=== PATIENT | female | born 1940 | race Caucasian/White ===

== ENCOUNTER 2017-10-05 23:38 | Observation (INO) ==
[2017-10-05] MEDS ORDERED: HYDROmorphone PF Inj 2 MG/ML Vial IV.PUSH ONE (23:53)
--- NOTE | 2017-10-06 00:16 | ED ---
HPI General Chief complaint: Back Pain/Injury Stated complaint: Back pain Time Seen by Provider: 10/05/17 23:51 Source: patient Mode of arrival: EMS Limitations: no limitations History of Present Illness HPI narrative: The patient is a 77 year old female who presents to the [facility] emergency department with a history of low back pain that awoke her from sound sleep earlier this morning. The patient reports that the low back pain is in the right side of her mid back. The patient reports that it feels like a spasm that comes and goes. She reports that it is gradually been getting worse with time throughout the day. She reports that she took a Percocet left over from having similar pain on the left side a month ago evaluated in this emergency department. She reports that her daughter also gave her a Flexeril. She reports that the pain was not improving, therefore she called ambulance services. The patient was noted to be hypertensive prior to arrival. She reports that she has a history of difficult to control high blood pressure at her primary care physician is monitoring closely and thought to be related to recent stress. She has not had any recent changes in her blood pressure medication regimen. She denies having any chest pain or chest pressure. She denies having any worsening shortness of breath that she does report having a history of asthma. She does however report that over the last 2 days she has had intermittent ingestion. She reports that she has been taking Pepcid without relief. The patient additionally reports that this evening she began to have a bitemporal headache. She reports that she also had sinus congestion earlier in the day. She denies having any productive cough. On review of systems otherwise, she denies having any recent fevers, neck pain, abdominal pain, vomiting, diarrhea, urinary symptoms, loss of bowel control, new urinary incontinence, (long-standing prior history of bladder incontinence), radiation of pain down into her arms or legs, weakness of her arms or legs, numbness or tingling of her arms or legs, facial droop, difficulty with word finding ability , vertigo, or vision changes. Related Data Home Medications Medication Instructions Recorded Confirmed albuterol sulfate [Ventolin HFA] 2 puff INHALATION Q4H PRN 09/19/17 10/06/17 atorvastatin 20 mg PO DAILY 09/19/17 10/06/17 clonazepam 1 mg PO DAILY 09/19/17 10/06/17 famotidine 20 mg PO PRN PRN 09/19/17 10/06/17 fluticasone-salmeterol [Advair 1 inh INHALATION BID 09/19/17 10/06/17 Diskus] fluticasone-vilanterol [Breo 1 inh INHALATION DAILY 09/19/17 10/06/17 Ellipta] hydralazine 25 mg PO TID 09/19/17 10/06/17 metoprolol tartrate 50 mg PO BID 09/19/17 10/06/17 montelukast 10 mg PO QPM 09/19/17 10/06/17 olopatadine 1 drp OPHTHALMIC (EYE) BID 09/19/17 10/06/17 sertraline 50 mg PO DAILY 09/19/17 10/06/17 Allergies Allergy/AdvReac Type Severity Reaction Status Date / Time aspirin Allergy Edema, Verified 10/05/17 23:50 Generalized Penicillins Allergy Edema, Verified 09/19/17 19:12 Generalized Sulfa (Sulfonamide Allergy Edema, Verified 09/19/17 19:12 Antibiotics) Generalized Review of Systems ROS: all other systems reviewed are negative (Except for that which was mentioned in the HPI.) [facility] Medical History Medical History Anxiety (Acute) Asthma (Acute) Depression (Acute) HTN (hypertension) (Acute) Hx of hysterectomy (Acute) Kidney disease (Acute) Surgical History Surgical History History of appendectomy (Acute) History of orthopedic surgery (Acute) Hx of cholecystectomy (Acute) Social History Social History Substance History: No History of Abuse Second Hand Smoke Exposure: No Smoking Status: Current some day smoker Tobacco Type: Cigarettes Cigarettes Per Day: 5 How Often Do You Have a Drink Containing Alcohol: Monthly or less Recent Travel in [facility] within the Last 8 Weeks: No Recent Out of Country Travel within the Last 8 Weeks: No Immunization History Tetanus Immunization: <5 Years Exam Const General: cooperative, no acute distress and well developed Nutritional Appearance: well nourished Orientation: alert, awake and oriented x3 HENMT Head: normocephalic and atraumatic Nose: no nasal discharge and no epistaxis Mouth: moist mucous membranes Throat: posterior oropharynx normal and uvula midline Eyes Sclera: normal sclerae Pupils: PERRL Neck Neck: no meningeal signs, trachea midline and no JVD Resp Effort & Inspection: no use of accessory muscles Auscultation: clear to auscultation bilaterally Cardio Rate: regular rate Rhythm: regular rhythm Heart Sounds: no gallops, murmur (1/6 systolic murmur, no gallops or rubs.) and no rubs GI Inspection: non-distended Palpation: soft, no hepatosplenomegaly and nontender Auscultation: normal bowel sounds Back/Spine/Pelvis Back: no CVA tenderness Cervical Spine: No cervical spinal tenderness Thoracic/Lumbar Spine: No thoracic spinal tenderness, No lumbar spinal tenderness and other (The patient reports that the location of the pain is along the mid thoracic paraspinal musculature on the right, however this is not able to be reproduced. No spinous process tenderness to palpation. No step- off or crepitus. No erythema or ecchymosis. No other rashes noted.) Skin General: dry skin (warm) Neuro General: alert, awake and oriented x3 Cranial Nerves: CN's II-XI intact bilaterally Speech: speech normal Motor: strength 5/5 throughout, no movement abnormalities noted and other (The patient has a negative straight leg raise bilaterally.) Sensory Exam: no sensory deficits noted Extrem General: normal to inspection, no clubbing, no cyanosis and no edema Psych Mood: congruent mood Affect: normal affect Judgment: judgment good Course Consultations Consultation #1: The patient's case including history, pertinent physical examination findings, and laboratory studies were discussed with Dr. Howard. As the patient's blood pressure is now down to 150/64, he recommends that the patient be admitted to the chest pain center instead of to the hospitalist service. Initial Documented Vital Signs Temperature 98.7 F 10/05/17 23:47 Pulse Rate 71 10/05/17 23:47 Respiratory Rate 19 10/05/17 23:47 Blood Pressure 233/109 H 10/05/17 23:47 Pulse Oximetry 97 10/05/17 23:47 Last Documented Vital Signs Temperature 98.4 F 10/06/17 05:23 Pulse Rate 63 10/06/17 05:23 Respiratory Rate 18 10/06/17 05:23 Blood Pressure 145/67 H 10/06/17 05:23 Pulse Oximetry 89 L 10/06/17 05:23 Medical Decision Making [facility] Narrative Medical decision making narrative: During the course of the patient's emergency department visit, the patient's history, examination, and differential diagnosis were reviewed with the patient. The patient was placed on a cardiac surgeon with oximetry and frequent blood pressure monitoring. The patient had IV access obtained and blood work sent for analysis. A diagnostic evaluation was started regarding the patient's back pain associated with hypertension, indigestion. A CTA to rule out aortic dissection was ordered. The patient was initially provided hydromorphone for pain, Zofran for nausea. The patient continued to have pain and was given a second dose of hydromorphone. The patient had an inch of Nitropaste applied to the chest wall. The patient was not provided aspirin as she has an allergy to this. The patient's diagnostic evaluation is remarkable for a white count of 7.5, platelets of 196, neutrophil percent 77.4, hemoglobin 13.6, PT PTT within normal limits, chemistry remarkable for a troponin I of less than 0.02, glucose 110, potassium 3.4, magnesium within normal limits, lipase within normal limits , GFR 65. CPK within normal limits, imaging reveals a chest x-ray that shows a mild left base atelectasis, tortuous and atherosclerotic thoracic aorta, thoracic aorta CT is remarkable for a tortuous and atherosclerotic aorta, slight aneurysmal dilatation of the distal abdominal aorta and the left common iliac artery. No dissection or other acute abnormality of the aorta. The patient is noted to have coronary artery calcifications. The patient's electronic medical record was reviewed and the patient had responded when she was seen for back pain a month ago to Dilaudid. The patient was also noted to be very hypertensive on that occasion which resolved with treatment of her pain. Initially, it did not appear that the patient's blood pressure was improving with pain control. Therefore labetalol was written to be administered, however on repeat analysis by the nurse at the bedside prior to labetalol being given the patient's blood pressure had dropped down to 150/ 64. Given the patient's reported dyspepsia which could be atypical cardiac findings , high blood pressure, and EKG abnormalities the patient will be admitted to the chest pain center for a rule out serial cardiac enzyme protocol followed by consideration of stress testing. The patient's results were discussed with the patient, including the plan of care. I explained that further testing and/ or monitoring is indicated based on the patient's history, examination, and/ or laboratory findings. Therefore, I recommended admission for additional evaluation. The patient expressed understanding and was agreeable with this plan. The patient was admitted to the hospital in stable condition and sent to a bed under the care of the [facility]. Medical Screen Exam Complete: Yes Emergency Medical Condition: Yes Differential Diagnosis Differential Diagnosis: Acute coronary syndrome, versus aortic dissection, versus pulmonary embolism, versus pneumothorax, versus pancreatitis Medical Records Medical records reviewed: Yes I reviewed the patient's medical records. Lab Data Lab results reviewed: Yes I reviewed the patient's lab results. Result diagrams: 10/05/17 23:59 10/05/17 23:59 Lab Results 10/05/17 10/05/17 10/05/17 Range/Units 23:59 23:59 23:59 WBC 7.5 (4.0-11.0) th/mm3 RBC 4.63 (4.00-5.30) mil/mm3 Hgb 13.6 (11.6-15.3) gm/dL Hct 40.9 (35.0-46.0) % MCV 88.2 (80.0-100.0) fL MCH 29.4 (27.0-34.0) pg MCHC 33.4 (32.0-36.0) % RDW 14.9 (11.6-17.2) % Plt Count 196 (150-450) th/mm3 MPV 9.0 (7.0-11.0) fL Neut % (Auto) 77.4 H (16.0-70.0) % Lymph % (Auto) 14.8 (9.0-44.0) % Grayson % (Auto) 6.5 (0.0-8.0) % Eos % (Auto) 0.8 (0.0-4.0) % Baso % (Auto) 0.5 (0.0-2.0) % Neut # (Auto) 5.8 (1.8-7.7) th/mm3 Lymph # (Auto) 1.1 (1.0-4.8) th/mm3 Grayson # (Auto) 0.5 (0.0-0.9) th/mm3 Eos # (Auto) 0.1 (0.0-0.4) th/mm3 Baso # (Auto) 0.0 (0.0-0.2) th/mm3 WBC Differential . Differential Comment Auto diff final PT 10.3 (9.8-11.6) sec INR 1.0 Ratio APTT 24.7 (24.3-30.1) sec Sodium 139 (136-145) meq/L Potassium 3.4 L (3.5-5.1) meq/L Chloride 101 (98-107) meq/L Carbon Dioxide 28.8 (21.0-32.0) meq/L Anion Gap 9 (5-15) meq/L BUN 12 (7-18) mg/dL Creatinine 0.85 (0.50-1.00) mg/dL Estimated GFR 65 L (>89) mL/min Random Glucose 110 H (74-106) mg/dL Calcium 8.6 (8.5-10.1) mg/dL Magnesium 1.9 (1.5-2.5) mg/dL Total Bilirubin 0.9 (0.2-1.0) mg/dL AST 17 (15-37) U/L ALT 24 (10-53) U/L Alkaline Phosphatase 106 (45-117) U/L Total Creatine Kinase 83 (26-192) U/L Troponin I Less than 0.02 L (0.02-0.05) ng/mL Total Protein 6.6 (6.4-8.2) g/dL Albumin 3.5 (3.4-5.0) g/dL Lipase 47 L (73-393) U/L Imaging Data Radiologist's impression: Thoracic Aorta CT 10/06/17 00:00 CONCLUSION: 1. Tortuous and atherosclerotic aorta. Slight aneurysmal dilatation of the distal abdominal aorta and the left common iliac artery. No dissection or other acute abnormality of the aorta. 2. Emphysema and trace atelectasis of both lungs. 3. Distended main pulmonary artery with differential including pulmonic stenosis with jet effect and chronic pulmonary hypertension. There is no evidence of pulmonary embolus. 4. Coronary artery calcification. 5. Normal heart size. 6. Cysts of the kidneys. Also a subcentimeter angiomyolipoma of the right kidney. 7. Diverticulosis of the sigmoid colon. No diverticulitis or other acute inflammatory changes. 8. Degenerative changes of the spine and bilateral hips. 9. Very small hiatal hernia. Chest X-Ray 10/06/17 00:02 CONCLUSION: Mild left base atelectasis. Tortuous and atherosclerotic thoracic aorta. ECG Data Attestation: I personally reviewed and interpreted this ECG as follows: Interpretation: The patient had an EKG done on arrival. The patient's EKG reveals sinus rhythm with a sinus arrhythmia heart rate of 71, QRS duration is 134 ms, QTC [address]-T wave abnormalities are noted, downsloping ST segments in leads III, V2, T-wave inversions in leads III, V1, V2. No acute ST segment elevation. Discharge Plan Discharge Disposition Patient Disposition: 30 Still Patient Discharge Details Diagnosis: Chest pain, Acute right-sided thoracic back pain Physicians Team ED Provider: Kirsty Li Attending Provider: Thalia Sanchez Discharge Interventions Interventions: ED Discharge Assessment Last Done: 10/06/17 05:02 Status ED Status: Left Department Discharge Information Discharge Date/Time: 10/06/17 05:04
--- NOTE | 2017-10-06 00:30 | XR ---
EXAM DATE: 10/06/2017 12:19 AM EDT AGE/SEX: 77 years / Female INDICATIONS: Chest pain. CLINICAL DATA: This is the patient's initial encounter. Patient reports that signs and symptoms have been present for 2 days and indicates a pain score of 3/10. MEDICAL/SURGICAL HISTORY: Asthma. Hypertension. None. COMPARISON: No prior exams available for comparison. FINDINGS: There is mild atelectasis of the left base. No pleural effusion or pneumothorax. Heart size within normal limits. Thoracic aorta is tortuous and atherosclerotic. No evidence of aneur ysm. CONCLUSION: Mild left base atelectasis. Tortuous and atherosclerotic thoracic aorta. Electronically signed by: Josue Cao MD 10/06/2017 12:28 AM EDT
[2017-10-06 00:33] LABS: Baso % (Auto) 0.5 % (0.0-2.0); Eos # (Auto) 0.1 th/mm3 (0.0-0.4); Eos % (Auto) 0.8 % (0.0-4.0); Hematocrit 40.9 % (35.0-46.0); Hemoglobin 13.6 gm/dL (11.6-15.3); Lymph # (Auto) 1.1 th/mm3 (1.0-4.8); Lymph % (Auto) 14.8 % (9.0-44.0); Mean Corpuscular HGB Conc 33.4 % (32.0-36.0); Mean Corpuscular Hemoglobin 29.4 pg (27.0-34.0); Mean Corpuscular Volume 88.2 fL (80.0-100.0); Mono # (Auto) 0.5 th/mm3 (0.0-0.9); Mono % (Auto) 6.5 % (0.0-8.0); Neut # (Auto) 5.8 th/mm3 (1.8-7.7); Neut % (Auto) 77.4 % (16.0-70.0); Platelet Count 196 th/mm3 (150-450); Red Blood Count 4.63 mil/mm3 (4.00-5.30); Red Cell Distribution Width 14.9 % (11.6-17.2); White Blood Count 7.5 th/mm3 (4.0-11.0)
[2017-10-06 00:44] LABS: Activated Partial Thrombo Time 24.7 sec (24.3-30.1); Prothrombin Time 10.3 sec (9.8-11.6)
[2017-10-06 00:56] LABS: Albumin 3.5 g/dL (3.4-5.0); Anion Gap 9 meq/L (5-15); Aspartate Aminotransferase 17 U/L (15-37); Blood Urea Nitrogen 12 mg/dL (7-18); Calcium 8.6 mg/dL (8.5-10.1); Carbon Dioxide 28.8 meq/L (21.0-32.0); Chloride 101 meq/L (98-107); Glomerular Filtration Rate 65 mL/min (>89); Glucose,Random 110 mg/dL (74-106); Lipase 47 U/L (73-393); Magnesium 1.9 mg/dL (1.5-2.5); Potassium 3.4 meq/L (3.5-5.1); Sodium 139 meq/L (136-145)
[2017-10-06 01:01] LABS: Alanine Aminotransferase 24 U/L (10-53); Alkaline Phosphatase 106 U/L (45-117); Total Protein 6.6 g/dL (6.4-8.2)
[2017-10-06 01:27] LABS: Creatine Kinase 83 U/L (26-192)
[2017-10-06] MEDS ORDERED: HYDROmorphone PF Inj 2 MG/ML Vial IV.PUSH ONE (01:28)
[2017-10-06] MEDS ORDERED: Labetalol HCl Inj 100 MG/20 ML Vial IV.PUSH ONE (02:12)
--- NOTE | 2017-10-06 02:24 | CT ---
EXAM DATE: 10/06/2017 2:06 AM EDT AGE/SEX: 77 years / Female INDICATIONS: Patient complaining of back pain. CLINICAL DATA: This is the patient's initial encounter. Patient reports that signs and symptoms have been present for 1 day and indicates a pain score of 8/10. MEDICAL/SURGICAL HISTORY: Hypertension. Asthma. Hysterectomy. Appendectomy. Cholecystectomy. RADIATION DOSE: 6.53 CTDI (mGy) COMPARISON: No prior exams available for comparison. TECHNIQUE: Volumetric scanning was performed using a multi-row detector CT scanner during bolus infu bernarda of 100 ml Omnipaque 350 (iohexol) nonionic water-soluble contrast as a single exam dose. The d latha was post processed with a variety of visualization algorithms including full volume maximum inten sity projection, multi-planar sliding thin slab reformation, curved planar reformation, and surface r endering techniques. Using automated exposure control and adjustment of the mA and/or kV according t o patient size, radiation dose was kept as low as reasonably achievable to obtain optimal diagnostic quality images. DICOM format image data is available electronically for review and comparison. FINDINGS: The aorta is tortuous and atherosclerotic. The vessel is mildly aneurysmal in the distal abdominal re gion, measures approximately 2.4 x 3.0 cm just proximal to the bifurcation. The left common iliac art julia is also mildly aneurysmal at 1.4 cm. No periaortic inflammatory changes are present. There is no dissection. The study is of good utility and excluding pulmonary embolus. There is distention of the main pulmona ry artery, measures approximately 4.6 cm across, typically seen in the setting of pulmonic stenosis w ith jet phenomena or chronic pulmonary hypertension. Heart size within normal limits. Scattered coron manny artery calcification noted, most conspicuous of the left circumflex and left anterior descending. Mild emphysema present. Trace dependent and basilar atelectasis seen bilaterally. No pneumonic infilt rate. No pleural effusion or pneumothorax. Liver, spleen, pancreas and adrenal glands within normal limits for technique. Scattered cysts are se en of both kidneys measuring up to 2.3 cm in size. An approximately 8 mm angiomyolipoma seen of the r ight lower pole. There is no hydronephrosis of either kidney. Florid diverticulosis seen of the sigmoid colon. No acute diverticulitis demonstrated. Very small hiatal hernia present. No acute bony abnormality demonstrated. Bilateral hip osteoarthritis present, severe on the right and moderate on the left. There are degenerative changes of the spine. CONCLUSION: 1. Tortuous and atherosclerotic aorta. Slight aneurysmal dilatation of the distal abdominal aorta an d the left common iliac artery. No dissection or other acute abnormality of the aorta. 2. Emphysema and trace atelectasis of both lungs. 3. Distended main pulmonary artery with differential including pulmonic stenosis with jet effect and chronic pulmonary hypertension. There is no evidence of pulmonary embolus. 4. Coronary artery calcification. 5. Normal heart size. 6. Cysts of the kidneys. Also a subcentimeter angiomyolipoma of the right kidney. 7. Diverticulosis of the sigmoid colon. No diverticulitis or other acute inflammatory changes. 8. Degenerative changes of the spine and bilateral hips. 9. Very small hiatal hernia. Electronically signed by: Josue Cao MD 10/06/2017 2:23 AM EDT
[2017-10-06] MEDS ORDERED: Orphenadrine Inj 60 MG/2 ML Ampul IM ONE (02:36)
[2017-10-06] MEDS ORDERED: Morphine Inj 4 MG/ML Vial IV.PUSH PRN (04:42)
[2017-10-06 07:37] LABS: Creatine Kinase 76 U/L (26-192)
--- NOTE | 2017-10-06 07:53 | P.HPCA ---
History of Present Illness Primary Care Physician: Neel Young Chief Complaint: Back pain History of Present Illness: 77 year old female with history of hypertension, hyperlipidemia, asthma, and current smoker since the ER for further evaluation right mid back pain. Onset yesterday. Characterizes "spasms." Duration 5-10 seconds. No associated symptoms of nausea, vomiting, dyspnea, or diaphoresis. Associated symptoms included belching and indigestion. No precipitating factors. No recent illness , cough, fever, or injury. Relieving factors pain medication given in ER. Endorses similar pain 2 weeks ago, although on the left mid back with radiation to left anterior chest. Seen at [place] [facility] given pain medication and discharged home. No known coronary artery disease or diabetes. No recent cardiac testing. Continues to smoke. - Diagnosis (1) Acute right-sided thoracic back pain (2) History of hypertension (3) History of hyperlipidemia (4) History of asthma (5) Tobacco abuse Review of Systems All other systems reviewed negative except as stated in HPI PMFSH - History History Provided By: Patient - Medical History Medical History: Medical History (Last Reviewed 10/06/17 @ 09:33 by DIMAS Aj) Anxiety Asthma Depression HTN (hypertension) Hx of hysterectomy Kidney disease - Surgical History Surgical History: Surgical History (Last Reviewed 10/06/17 @ 09:33 by DIMAS Aj) History of appendectomy History of orthopedic surgery Hx of cholecystectomy - Tobacco History Second Hand Smoke Exposure: No Tobacco Use In Past 30 Days: Yes Smoking Status: Current some day smoker Tobacco Type: Cigarettes Cigarettes Per Day: 5 - Alcohol History How Often Do You Have a Drink Containing Alcohol: Monthly or less - Substance Use History Substance History: No History of Abuse - Travel History Recent Travel in the [place] Within the Last 8 Weeks: No Recent Travel Out of the Country Within the Last 8 Weeks: No - Immunization History Tetanus Immunization: <5 Years Medications and Allergies Active Medications: Active Medications Hydrocodone Bitart/Acetaminophen ([place] 7.5/325) 1 tab PO Q4H PRN PRN Reason: PAIN SCALE 1 TO 7 Morphine Sulfate (Morphine Inj) 2 mg IV.PUSH Q4H PRN PRN Reason: PAIN SCALE 8 TO 10 Ondansetron HCl (Zofran Inj) 4 mg IV.PUSH Q6H PRN PRN Reason: NAUSEA Sodium Chloride (Ns Flush) 2 ml IV.FLUSH UNSCH PRN PRN Reason: FLUSH AFTER USING IV ACCESS Sodium Chloride (Ns Flush) 2 ml IV.FLUSH BID LEV Sodium Chloride (Ns Flush) 2 ml IV.FLUSH PRN PRN PRN Reason: FLUSH AFTER USING IV ACCESS Allergies Allergy/AdvReac Type Severity Reaction Status Date / Time aspirin Allergy Edema, Verified 10/05/17 23:50 Generalized Penicillins Allergy Edema, Verified 09/19/17 19:12 Generalized Sulfa (Sulfonamide Allergy Edema, Verified 09/19/17 19:12 Antibiotics) Generalized Home Medications Medication Instructions Recorded Confirmed Type albuterol sulfate [Ventolin HFA] 2 puff INHALATION Q4H PRN 09/19/17 10/06/17 History atorvastatin 20 mg PO DAILY 09/19/17 10/06/17 History clonazepam 1 mg PO DAILY 09/19/17 10/06/17 History famotidine 20 mg PO PRN PRN 09/19/17 10/06/17 History fluticasone-salmeterol [Advair 1 inh INHALATION BID 09/19/17 10/06/17 History Diskus] fluticasone-vilanterol [Breo 1 inh INHALATION DAILY 09/19/17 10/06/17 History Ellipta] hydralazine 25 mg PO TID 09/19/17 10/06/17 History metoprolol tartrate 50 mg PO BID 09/19/17 10/06/17 History montelukast 10 mg PO QPM 09/19/17 10/06/17 History olopatadine 1 drp OPHTHALMIC (EYE) BID 09/19/17 10/06/17 History sertraline 50 mg PO DAILY 09/19/17 10/06/17 History Exam Vital signs: Vital Signs 10/05/17 23:47 10/06/17 00:00 10/06/17 01:36 Temperature 98.7 F Pulse Rate 71 Respiratory Rate 19 18 Blood Pressure 233/109 H Pulse Oximetry 97 97 10/06/17 01:40 10/06/17 02:55 10/06/17 02:57 Temperature 98.4 F Pulse Rate 87 65 Respiratory Rate 18 15 18 Blood Pressure 213/94 H 150/64 H Pulse Oximetry 97 97 10/06/17 05:23 10/06/17 07:20 10/06/17 07:47 Temperature 98.4 F 98.0 F Pulse Rate 63 64 63 Respiratory Rate 18 18 Blood Pressure 145/67 H 139/64 Pulse Oximetry 89 L 96 Intake & Output 10/05/17 10/06/17 10/06/17 18:59 06:59 18:59 Weight 72.9 kg Narrative: GENERAL: Alert WN, WD, NAD, pleasant, elderly female HEAD: NC, AT CV: RRR, without murmur, rub, gallop, no JVD, S1-S2 no S3-S4. Chest wall nontender to palpation RESP: Diminished lungs throughout bilateral, no crackles, wheeze, rhonchi, symmetrical chest rise, nonlabored, able to speak in full sentences ABD: Soft, NT, ND, no masses, positive bowel tones EXT: Pulses +2x4, no dependent edema MS: Normal tone x4 extremities, nontender, no obvious deformities, full range of motion NEURO: CN II through CN XII grossly intact, motor strength 5/5 PSYCH: A+O x3, pleasant affect, appropriate speech, mood, insight and judgment SKIN: Normal turgor, normal texture, solar damage, no lesions, no rashes Results 10/05/17 23:59 10/05/17 23:59 Cardiac Enzymes 10/05/17 10/06/17 Range/Units 23:59 04:50 AST 17 (15-37) U/L Troponin I Less than 0.02 L Less than 0.02 L (0.02-0.05) ng/mL Coagulation 10/05/17 Range/Units 23:59 PT 10.3 (9.8-11.6) sec APTT 24.7 (24.3-30.1) sec CBC 10/05/17 Range/Units 23:59 WBC 7.5 (4.0-11.0) th/mm3 RBC 4.63 (4.00-5.30) mil/mm3 Hgb 13.6 (11.6-15.3) gm/dL Hct 40.9 (35.0-46.0) % Plt Count 196 (150-450) th/mm3 Neut # (Auto) 5.8 (1.8-7.7) th/mm3 Lymph # (Auto) 1.1 (1.0-4.8) th/mm3 [place] # (Auto) 0.5 (0.0-0.9) th/mm3 Eos # (Auto) 0.1 (0.0-0.4) th/mm3 Baso # (Auto) 0.0 (0.0-0.2) th/mm3 Comprehensive Metabolic Panel 10/05/17 Range/Units 23:59 Sodium 139 (136-145) meq/L Potassium 3.4 L (3.5-5.1) meq/L Chloride 101 (98-107) meq/L Carbon Dioxide 28.8 (21.0-32.0) meq/L BUN 12 (7-18) mg/dL Creatinine 0.85 (0.50-1.00) mg/dL Calcium 8.6 (8.5-10.1) mg/dL AST 17 (15-37) U/L ALT 24 (10-53) U/L Alkaline Phosphatase 106 (45-117) U/L Total Protein 6.6 (6.4-8.2) g/dL Albumin 3.5 (3.4-5.0) g/dL Intake and Output 10/05/17 10/06/17 10/06/17 22:59 06:59 14:59 Other: Weight 72.9 kg EKG interpretations - EKG EKG results cardiology: sinus rhythm (NSR, LAD, R BBB) Caprini VTE Risk Assessment Caprini VTE Risk Assessment: Moderate/High Risk (score >= 2) Caprini Risk Assessment Model: Point Value = 1 Point Value = 2 Point Value = 3 Point Value = 5 Age 41-60 Minor surgery BMI > 25 kg/m2 Swollen legs Varicose veins or History of unexplained or recurrent spontaneous Oral contraceptives or hormone replacement Sepsis (< 1 month) Serious lung disease, including pneumonia (< 1 month) Abnormal pulmonary function Acute myocardial infarction Congestive heart failure (< 1 month) History of inflammatory bowel disease Medical patient at bed rest Age 61-74 Arthroscopic surgery Major open surgery (> 45 min) Laparoscopic surgery (> 45 min) Malignancy Confined to bed (> 72 hours) Immobilizing plaster cast Central venous access Age >= 75 History of VTE Family history of VTE Factor V Leiden Prothrombin [id number] Lupus anticoagulant Anticardiolipin antibodies Elevated serum homocysteine Heparin-induced thrombocytopenia Other congenital or acquired thrombophilia Stroke (< 1 month) Elective arthroplasty Hip, pelvis, or leg fracture Acute spinal cord injury (< 1 month) Prophylaxis Regimen: Total Risk Factor Score Risk Level Prophylaxis Regimen 0-1 Low Early ambulation 2 Moderate Order ONE of the following: *Sequential Compression Device (SCD) *Heparin 5000 units SQ BID 3-4 Higher Order ONE of the following medications: *Heparin 5000 units SQ TID *Enoxaparin/Lovenox 40 mg SQ daily (WT < 150 kg, CrCl > 30 mL/min) *Enoxaparin/Lovenox 30 mg SQ daily (WT < 150 kg, CrCl > 10-29 mL/min) *Enoxaparin/Lovenox 30 mg SQ BID (WT < 150 kg, CrCl > 30 mL/min) AND/OR *Sequential Compression Device (SCD) 5 or more Highest Order ONE of the following medications: *Heparin 5000 units SQ TID (Preferred with Epidurals) *Enoxaparin/Lovenox 40 mg SQ daily (WT < 150 kg, CrCl > 30 mL/min) *Enoxaparin/Lovenox 30 mg SQ daily (WT < 150 kg, CrCl > 10-29 mL/min) *Enoxaparin/Lovenox 30 mg SQ BID (WT < 150 kg, CrCl > 30 mL/min) AND *Sequential Compression Device (SCD) Assessment and Plan - Assessment (1) Acute right-sided thoracic back pain Code(s): M54.6 - Pain in thoracic spine Status: Resolved Plan: Discomfort resolved. Admitted chest pain center. ACS ruled out with 2 sets of EKGs and cardiac enzymes. Seen and evaluated by Dr. Ramiro Sher. Proceed with Lexiscan due to multiple risk factors. Patient agreeable to plan of care and verbalizes understanding. (2) History of hypertension Code(s): Z86.79 - Personal history of other diseases of the circulatory system Status: Chronic Plan: Continue hydralazine and metoprolol. (3) History of hyperlipidemia Code(s): Z86.39 - Personal history of other endocrine, nutritional and metabolic disease Status: Chronic Plan: Continue atorvastatin. (4) History of asthma Code(s): Z87.09 - Personal history of other diseases of the respiratory system Status: Chronic Plan: Continue Advair, Breo, and albuterol. (5) Tobacco abuse Code(s): Z72.0 - Tobacco use Status: Chronic Plan: Strongly encouraged and stressed the importance of tobacco cessation. Instructed to quit smoking. H&P: Quality - VTE Deep Vein Thrombosis/Pulmonary Embolism Present on Admission: No
[2017-10-06 09:39] LABS: Creatine Kinase 74 U/L (26-192)
[2017-10-06] MEDS ORDERED: Regadenoson Inj 0.4 MG/5 ML Syringe IV.PUSH ONE (11:25)
[2017-10-06] MEDS ORDERED: Budesonide-Formoterol 160/4.5 MCG 6 GM Inhaler INH SCH (12:00)
[2017-10-06] MEDS ORDERED: Sertraline 50 MG Tablet PO SCH (12:00)
[2017-10-06] MEDS ORDERED: Metoprolol Tartrate 50 MG Tablet PO SCH (12:00)
[2017-10-06] MEDS ORDERED: hydrALAZINE 25 MG Tablet PO SCH (13:00)
[2017-10-06 13:24] VITALS: PULSE 70; RESP 16; O2SAT 91
--- NOTE | 2017-10-06 13:30 | NM ---
EXAM DATE: 10/06/2017 1:04 PM EDT AGE/SEX: 77 years / Female INDICATIONS:Angina. . Hypertensive. Lower back pain. CLINICAL DATA: This is the patient's initial encounter. Patient reports that signs and symptoms have been present for 1 day and indicates a pain score of 0/10. MEDICAL/SURGICAL HISTORY: Hypertension. Asthma. Hysterectomy. Appendectomy. Cholecystectomy. COMPARISON: No prior exams available for comparison. DOSE: 8.4 mCi Tc 99m Myoview at rest 27.2 mCi [id number]-Infaocr at stress 0.4 mg Lexiscan STRESS SYMPTOMS: Throat tightness and abdomen pain. EJECTION FRACTION: 60 % TECHNIQUE: The patient underwent pharmacologic stress with infusion of prescribed dose. Continuous ECG tracing was monitored during stress. Gated SPECT imaging was performed after stress and conventi onal SPECT imaging was performed at rest. The examination was performed on a SPECT/CT scanner, both attenuation and non-corrected datasets were reviewed. FINDINGS: Distribution: The maximum perfused segment at stress is in the anterior lateral wall. Perfusion Study: The pattern of perfusion at stress is within normal limits. Gated Study: There are intact wall motion and wall thickening without hypokinetic or dyskinetic segm ents. The ejection fraction is calculated at 60%. RISK CATEGORY: Low (<1% Annual Motality Rate) CONCLUSION: 1. Left ventricle perfusion is within normal limits. No fixed or reversible perfusion defect is iden tified. 2. Normal left ventricle wall motion and ejection fraction. Electronically signed by: Josue Mendez MD 10/06/2017 1:29 PM EDT
[2017-10-06] MEDS ORDERED: Acetaminophen 325 MG Tablet PO ONE (13:45)
--- NOTE | 2017-10-06 15:37 | ECG ---
Date Performed: 10/06/2017 Time Performed: 00:27:34 PTAGE: 77 years EKG: Sinus rhythm WITH SINUS ARRHYTHMIA MARKED LEFT AXIS DEVIATION RIGHT BUNDLE BRANCH BLOCK ABNORMAL ECG NONSPECIFIC ST T CHANGES NO PREVIOUS TRACING DOCTOR: Ramiro Sher Interpretating Date/Time 10/06/2017 15:35:58
--- NOTE | 2017-10-06 15:38 | ECG ---
Date Performed: 10/06/2017 Time Performed: 04:48:48 PTAGE: 77 years EKG: Sinus rhythm MARKED LEFT AXIS DEVIATION RIGHT BUNDLE BRANCH BLOCK ABNORMAL ECG NON SPECIFIC ST T CHANGES PREVIOUS TRACING : 10/06/2017 00.27 DOCTOR: Ramiro Sher Interpretating Date/Time 10/06/2017 15:37:45
--- NOTE | 2017-10-06 15:40 | TR ---
Date Performed: 10/06/2017 Time Performed: 11:26:25 DOCTOR: Ramiro Sher DRUG LIST: CLINICAL HISTORY: REASON FOR TEST: REASON FOR ENDING: OBSERVATION: CONCLUSION: COMMENTS: Lexiscan stress test was performed under standard four minute protocol. Radionuclide was injected one minute prior to ending the test. No electrocardiographic abormalities were present t o suggest ischemia. Nuclear imaging and interpretation are pending.
[2017-10-06 15:41] VITALS: BP 133/69; TEMP 98.9
[2017-10-06] MEDS ORDERED: Ibuprofen 400 MG Tablet PO ONE (15:46)
[2017-10-06] MEDS ORDERED: Montelukast 10 MG Tablet PO SCH (18:00)
== END 2017-10-06 17:05 | disposition home or self-care (01) ==
LOC: NEPC 23:38 → NEDA 23:38 → NEPHCDU 10-06 04:44
PROVIDERS: ADMIT Internal Medicine Interventional Cardiology; ATTEND Internal Medicine Interventional Cardiology